=== PATIENT | female | born 2000 | race Caucasian/White ===

== ENCOUNTER → 2020-07-28 | Outpatient (CLI) | payer MEDICAID ==
--- NOTE | 2020-07-28 16:21 | Diagnostic Imaging Report ---
INDICATION: survey. TECHNIQUE: Multiple real-time grayscale images were obtained over the gravid uterus. COMPARISON: None FINDINGS: Single fetus in a breech presentation. Heart rate was recorded 149 bpm. Placenta is anterior. Amniotic fluid index is normal. Cervical length is 3.9 cm. survey demonstrates kidneys, bladder and stomach to be unremarkable. brain is unremarkable. The four-chamber heart view is somewhat suboptimal due to position. There is a three-vessel cord with normal insertion. spine is unremarkable. Biometrical measurements are as follows: Biparietal 4.39 cm, age 19 weeks 2 days. Head circumference 17.41 cm, age 20 weeks 0 days. Abdominal circumference 14.58 cm, age 20 weeks 0 days. Femur length 3.30 cm, age 20 weeks 3 days. Sonographic estimate age: 20 weeks 0 days. Sonographic estimated date of delivery: 12/15/2020. Estimated Weight: 329 gm (+/- 48 gm). LMP percentile: 40%. heart rate: 149 beats per minute. number: 1 of 1. IMPRESSION: Single live IUP 20 weeks 0 days gestational age. Estimated date of confinement sonographically is 12/15/2020. Dictated by: Dictated on workstation # [id number]
== END ==
LOC: RAD 09:35
PROVIDERS: ATTEND Nurse Practitioner Women's Health
DX: Z34.02 Encounter for supervision of normal first pregnancy, second trimester (principal); Z3A.20 20 weeks gestation of pregnancy
CPT/HCPCS: 76805

== ENCOUNTER 2020-11-13 11:17 | Outpatient (CLI) | payer MEDICAID ==
[~2020-11-13] VITALS: Ht 162.6 cm; Wt 65.0 kg
[2020-11-13 11:28] VITALS: BP 125/72
[2020-11-13] MEDS ORDERED: PREN-51 PO (11:28)
[2020-11-13 11:31] LABS: BILIRUBIN,URINE NEGATIVE (NEGATIVE); CLARITY,URINE CLEAR; COLOR,URINE YELLOW; GLUCOSE, URINE (UA) NEGATIVE (NEGATIVE); KETONES,URINE NEGATIVE (NEGATIVE); LEUKOCYTE ESTERASE ,URINE 2+ (NEGATIVE); NITRITE,URINE NEGATIVE (NEGATIVE); PROTEIN,URINE NEGATIVE (NEGATIVE)
[2020-11-13 11:40] LABS: BACTERIA,URINE TRACE /HPF
[2020-11-13 11:57] VITALS: BP 125/72
[2020-11-13] MEDS ORDERED: ACETAMINOPHEN 500 MG TAB (TYLENOL) ONE (12:29)
[2020-11-13] MEDS ORDERED: NS IV 1000 ML 1,000 ML ONE (12:29)
[2020-11-13] MEDS ORDERED: NS IV 1000 ML 1,000 ML IV SCH (12:30)
[2020-11-13] MEDS ORDERED: ACETAMINOPHEN 500 MG TAB (TYLENOL) PO ONE (12:30)
--- NOTE | 2020-11-14 08:32 | Physician Query-Final Dx ---
FERNANDO CHEEMA 11/14/20 0832: Clinic Account Progress/Dx Physician Query: Please give diagnosis Please include # weeks gestation Date of Service Nov 13, 2020 at 11:17 RENATO LONGO DO 11/16/20 0545: Clinic Account Progress/Dx DIAGNOSIS: Diagnosis 35 week IUP Diarrhea, acute gastroenteritis FERNANDO CHEEMA Nov 14, 2020 08:32 RENATO LONGO DO Nov 16, 2020 05:45
== END 2020-11-13 15:54 | disposition home or self-care (01) ==
LOC: WSo 11:17 → LDRP 11:18 → WSo 15:54
PROVIDERS: ATTEND Obstetrics & Gynecology
DX: O99.613 Diseases of the digestive system complicating pregnancy, third trimester (principal); O26.893 Other specified pregnancy related conditions, third trimester; Z3A.35 35 weeks gestation of pregnancy
CPT/HCPCS: 81000; 96360; G0463; 99214

== ENCOUNTER 2020-12-08 06:12 | Inpatient (IN) | payer MEDICAID ==
[2020-12-08] VITALS (62 sets, daily range): BP systolic 99–156; BP diastolic 56–94
[~2020-12-08 06:12] MED LIST: PREN-51 PO
[2020-12-08] MEDS ORDERED: AMPICILLIN FOR IV USE 2,000 MG in WATER (STERILE) FOR INJECTION 14.8 ML IV SCH (07:29)
[2020-12-08] MEDS ORDERED: AMPICILLIN 2,000 MG/14.8 ML (IV USE) ONE (07:33)
[2020-12-08] MEDS ORDERED: D5 LR IV SOLUTION 1,000 ML IV ONE (07:33)
[2020-12-08] MEDS ORDERED: WATER (STERILE) FOR INJECTION 20 ML ONE (07:33)
[2020-12-08] MEDS: D5 LR IV SOLUTION 1,000 ML IV SCH ×2 (07:41→16:32)
[2020-12-08 07:59] LABS: BILIRUBIN,URINE NEGATIVE (NEGATIVE); CLARITY,URINE CLEAR; COLOR,URINE YELLOW; GLUCOSE, URINE (UA) NEGATIVE (NEGATIVE); KETONES,URINE NEGATIVE (NEGATIVE); LEUKOCYTE ESTERASE ,URINE 3+ (NEGATIVE); NITRITE,URINE NEGATIVE (NEGATIVE); PH,URINE 6.5 (5-9); PROTEIN,URINE NEGATIVE (NEGATIVE)
[2020-12-08 08:04] LABS: BASOPHILS % (AUTO) 1 % (0-10); EOSINOPHILS # (AUTO) 0.1 10^3/uL (0.0-0.3); EOSINOPHILS % (AUTO) 1 % (0-10); HEMATOCRIT 37 % (35-52); HEMOGLOBIN 12.2 g/dL (11.5-16.0); LYMPHOCYTES % (AUTO) 27 % (12-44); MEAN CORPUSCULAR HEMOGLOBIN 28 pg (25-34); MEAN CORPUSCULAR HGB CONC 33 g/dL (32-36); MEAN CORPUSCULAR VOLUME 85 fL (80-99); MEAN PLATELET VOLUME 9.7 fL (9.0-12.2); MONOCYTES # (AUTO) 0.7 10^3/uL (0.0-1.0); MONOCYTES % (AUTO) 9 % (0-12); NEUTROPHILS # (AUTO) 4.6 10^3/uL (1.8-7.8); NEUTROPHILS % (AUTO) 61 % (42-75); PLATELET COUNT 325 10^3/uL (130-400); WHITE BLOOD COUNT 7.5 10^3/uL (4.3-11.0)
[2020-12-08 08:20] LABS: BACTERIA,URINE MODERATE /HPF; WBC,URINE 25-50 /HPF
--- NOTE | 2020-12-08 08:52 | History & Physical-OB ---
OB - Chief Complaint & HPI Date/Time Date of Admission: Date of Admission: Dec 08, 2020 at 07:10 Date seen by a Provider: Dec 08, 2020 Time Seen by a Provider: 09:00 Chief Complaint/History OB-Reason for Admission/Chief: Induction of Labor Hx : 1 Hx Para: 0 Expected Date of Delivery: Dec 14, 2020 Gestational Age in Weeks: 39 Gestational Age in Days: 1 Admission Nurse Assessment Rev: Yes History of Labs See PN record Allergies and Home Medications Allergies Coded Allergies: nickel (Unverified Allergy, Unknown, 11/13/20) Home Medications Vit #76/Iron,Carb/FA 1 Each Tablet, 1 EACH PO DAILY, (Reported) Patient Home Medication List Home Medication List Reviewed: Yes OB - History Hx of Present Care: Yes Ultrasounds: Normal mid trimester US Obstetrical Complications: None Medical Complications: None Patient Past Medical History n/a OB - Admission Exam Physical Exam HEENT: NCAT Heart: Rhythm Normal Lungs: Clear Abdomen: Gravid Extremities: Normal Reflexes: Normal Cervical Dilatation: 2cm Effacement: 75% Station: -1 Membranes: Intact Heart Rate: 130's Accelerations: Accelerations Present Decelerations: No Decelerations Short Term Variability: Present Debug Technician Variability: Average (6-25) Contractions on Admission: 6-10 Minutes Apart Intensity: Mild Barr Scoring Tool (Modified) Dilation (cm): 1-2cm (1) Effacement (%): 51-79% (2) Descent/Station: -1,0 (2) Cervix Consistency: Soft (2) Cervix Position: Anterior (2) Subtract 1 point for: Nulliparity (-1) Barr Score: 8 Labs Laboratory Tests Test 12/08/20 07:35 Range/Units White Blood Count 7.5 4.3-11.0 10^3/uL Red Blood Count 4.31 3.80-5.11 10^6/uL Hemoglobin 12.2 11.5-16.0 g/dL Hematocrit 37 35-52 % Mean Corpuscular Volume 85 80-99 fL Mean Corpuscular Hemoglobin 28 25-34 pg Mean Corpuscular Hemoglobin Concent 33 32-36 g/dL Red Cell Distribution Width 12.8 10.0-14.5 % Platelet Count 325 130-400 10^3/uL Mean Platelet Volume 9.7 9.0-12.2 fL Immature Granulocyte % (Auto) 1 % Neutrophils (%) (Auto) 61 42-75 % Lymphocytes (%) (Auto) 27 12-44 % Monocytes (%) (Auto) 9 0-12 % Eosinophils (%) (Auto) 1 0-10 % Basophils (%) (Auto) 1 0-10 % Neutrophils # (Auto) 4.6 1.8-7.8 10^3/uL Lymphocytes # (Auto) 2.0 1.0-4.0 10^3/uL Monocytes # (Auto) 0.7 0.0-1.0 10^3/uL Eosinophils # (Auto) 0.1 0.0-0.3 10^3/uL Basophils # (Auto) 0.0 0.0-0.1 10^3/uL Immature Granulocyte # (Auto) 0.0 0.0-0.1 10^3/uL Urine Color YELLOW Urine Clarity CLEAR Urine pH 6.5 5-9 Urine Specific [place] 1.010 L 1.016-1.022 Urine Protein NEGATIVE NEGATIVE Urine Glucose (UA) NEGATIVE NEGATIVE Urine Ketones NEGATIVE NEGATIVE Urine Nitrite NEGATIVE NEGATIVE Urine Bilirubin NEGATIVE NEGATIVE Urine Urobilinogen 0.2 < = 1.0 MG/DL Urine Leukocyte Esterase 3+ H NEGATIVE Urine RBC (Auto) NEGATIVE NEGATIVE Urine RBC NONE /HPF Urine WBC 25-50 H /HPF Urine Squamous Epithelial Cells 10-25 H /HPF Urine Crystals NONE /LPF Urine Bacteria MODERATE H /HPF Urine Casts NONE /LPF Urine Mucus SMALL H /LPF Urine Culture Indicated YES OB - Assessment/Plan/Diagnosis Assessment Assessment: group B positive strep, induction of labor Admission Dx 20 yo @ 39 weeks Elective IOL GBS pos Admission Status: Inpatient Order (span 2 midnights) Reason for Inpatient Admission: IOL at 39 weeks Plan Plan: Induction Induction Method: per Pitocin Protocol RENATO LONGO DO Dec 08, 2020 08:52
[2020-12-08] MEDS ORDERED: OXYTOCIN PRE-MIX DRIP 500 ML IV SCH (09:30)
[2020-12-08] MEDS ORDERED: fentaNYL 2 mcg/ml BUPIVA 0.125 100 ML ONE (10:55)
[2020-12-08] MEDS ORDERED: LACTATED RINGERS 1,000 ML IV ONE ×2 (10:55→14:15)
[2020-12-08] MEDS ORDERED: BUPIVACAINE 0.25% 30 ML (SENSORCAINE) VIAL ONE (11:24)
[2020-12-08] MEDS ORDERED: fentaNYL INJ 100 MCG/2 ML AMP ONE (11:24)
[2020-12-08] MEDS: AMPICILLIN FOR IV USE 1,000 MG in WATER (STERILE) FOR INJECTION 7.4 ML IV SCH ×2 (11:48→15:28)
[2020-12-08] MEDS ORDERED: ONDANSETRON 4 MG/2 ML (SDV) Z0FRAN ONE (12:13)
[2020-12-08] MEDS: ONDANSETRON 4 MG/2 ML (SDV) Z0FRAN IVP PRN ×2 (12:19→15:25)
[2020-12-08] MEDS ORDERED: CATHETER FLUSH 10 ML SYR IV PRN (14:15)
[2020-12-08] MEDS ORDERED: ONDANSETRON 4 MG/2 ML (SDV) Z0FRAN IV PRN (14:15)
[2020-12-08] MEDS ORDERED: diphenhydrAMINE 50 MG/ML INJ (BENADRYL) IV PRN (14:15)
[2020-12-08] MEDS ORDERED: NALOXONE 0.4 MG/ML 1 ML (NARCAN) VIAL IV PRN ×2 (14:15→20:00)
[2020-12-08] MEDS ORDERED: fentaNYL 2 mcg/ml BUPIVA 0.125 100 ML IV SCH (14:15)
[2020-12-08] MEDS: CATHETER FLUSH 10 ML SYR IV SCH (15:20)
[2020-12-08] MEDS ORDERED: LIDOCAINE 1% INJ 20 ML 20 ML VIAL ONE (18:48)
--- NOTE | 2020-12-08 19:56 | OB Labor & Delivery Record ---
L&D History Date of Service Date of Service: Dec 08, 2020 History Expected Date of Delivery: Dec 14, 2020 Gestational Age in Weeks: 39 Hx : 1 Hx Para: 0 Complications Events: Routine care Operative Indications (Cesarea: N/A-Vaginal Delivery Intrapartal Events: None L&D Stage1 Stage One Onset of Labor - Date: Dec 08, 2020 Monitors and Tracing Monitor Mode: External Heart Rate: 130 Monitor Accelerations: Uniform Monitor Decelerations: Variable Station: 0 Residential Variability: Average (6-10) Short Term Variability: Present Presentation: Vertex Vital Signs VS - Last 72 Hours, by Label 12/08/20 12/08/20 12/08/20 12/08/20 07:20 09:05 09:34 09:45 Temp 36.9 36.9 Pulse 89 89 69 65 Resp 18 18 18 18 B/P (MAP) 130/86 (101) 118/75 (89) 105/57 (73) Pulse Ox 100 100 O2 Delivery Room Air Room Air Room Air Room Air 12/08/20 12/08/20 12/08/20 12/08/20 10:00 10:14 10:30 10:46 Temp 36.3 Pulse 63 58 65 69 Resp 18 18 18 18 B/P (MAP) 108/62 (77) 104/60 (75) 110/73 (85) 119/79 (92) O2 Delivery Room Air Room Air Room Air Room Air 12/08/20 12/08/20 12/08/20 12/08/20 11:00 11:10 11:29 11:32 Pulse 69 70 71 79 Resp 18 18 18 18 B/P (MAP) 129/85 (100) 133/82 (99) 128/76 (93) 128/80 (96) Pulse Ox 100 100 O2 Delivery Room Air Room Air Room Air Room Air 12/08/20 12/08/20 12/08/20 12/08/20 11:35 11:38 11:41 11:44 Pulse 73 69 83 73 Resp 18 18 18 18 B/P (MAP) 128/83 (98) 126/80 (95) 131/86 (101) 117/72 (87) Pulse Ox 100 100 100 100 O2 Delivery Room Air Room Air Room Air Room Air 12/08/20 12/08/20 12/08/20 8/16/21 11:47 11:50 12:00 12:05 Pulse 82 88 73 70 Resp 18 18 18 18 B/P (MAP) 110/75 (87) 112/70 (84) 120/76 (91) 117/61 (79) Pulse Ox 100 100 99 98 O2 Delivery Room Air Room Air Room Air Room Air 12/08/20 12/08/20 12/08/20 12/08/20 12:10 12:18 12:23 12:28 Pulse 70 75 89 74 Resp 18 18 18 18 B/P (MAP) 118/66 (83) 119/63 (81) 115/74 (88) 102/67 (79) Pulse Ox 99 99 100 100 O2 Delivery Room Air Room Air Room Air Room Air 12/08/20 12/08/20 12/08/20 12/08/20 12:33 12:38 12:44 12:48 Pulse 86 73 75 85 Resp 18 18 18 18 B/P (MAP) 111/56 (74) 113/60 (77) 107/67 (80) 109/67 (81) Pulse Ox 100 100 100 95 O2 Delivery Room Air Room Air Room Air Room Air 12/08/20 12/08/20 12/08/20 12/08/20 12:53 13:00 13:10 13:25 Temp 35.9 Pulse 70 68 67 58 Resp 18 18 18 18 B/P (MAP) 113/64 (80) 106/63 (77) 111/62 (78) 107/60 (76) Pulse Ox 100 100 97 100 O2 Delivery Room Air Room Air Room Air Room Air 12/08/20 12/08/20 12/08/20 12/08/20 13:40 13:55 14:10 14:25 Pulse 67 65 85 64 Resp 18 18 18 18 B/P (MAP) 107/63 (78) 110/63 (79) 123/82 (96) 105/60 (75) Pulse Ox 100 100 100 100 O2 Delivery Room Air Room Air Room Air Room Air 12/08/20 12/08/20 12/08/20 12/08/20 14:40 14:55 15:18 15:25 Temp 36.4 Pulse 72 108 69 68 Resp 18 18 18 18 B/P (MAP) 119/74 (89) 121/84 (96) 121/56 (77) 119/72 (88) Pulse Ox 100 100 100 99 O2 Delivery Room Air Room Air Room Air Room Air 12/08/20 12/08/20 12/08/20 12/08/20 15:55 16:40 16:55 17:10 Temp 35.6 Pulse 65 67 66 67 Resp 18 18 18 18 B/P (MAP) 99/74 (82) 113/62 (79) 124/62 (82) 113/64 (80) Pulse Ox 98 100 100 98 O2 Delivery Room Air Room Air Room Air Room Air 12/08/20 12/08/20 12/08/20 12/08/20 17:25 17:40 17:55 18:10 Temp 35.7 Pulse 74 66 62 63 Resp 18 18 18 18 B/P (MAP) 114/56 (75) 122/70 (87) 116/65 (82) 152/59 (90) Pulse Ox 100 100 100 100 O2 Delivery Room Air Room Air Room Air Room Air 12/08/20 12/08/20 12/08/20 12/08/20 18:25 18:38 18:43 18:55 Temp 36.4 Pulse 60 68 100 Resp 18 18 18 B/P (MAP) 104/59 (74) 111/61 (78) 134/70 (91) Pulse Ox 98 99 O2 Delivery Room Air Room Air Room Air Rupture of Membranes Spontaneous Ruture of Membrane: No Amniotic Membrane Rupture Time: 1050 Amniotic Membrane Fluid Desc.: Clear Vaginal Bleeding Description: Normal Show Induction/Anesthesia Epidural Cath Placement - Time: 1135 Progress/Notes Patient admitted for elective IOL, Pitocin started and antibiotics for GBS prophylaxis, she received AROM, and progressed to complete and +2 station with epidural analgesia L&D Stage2 Stage Two Stage II Date: Dec 08, 2020 Monitors and Tracing Monitor Mode: External Heart Rate: 150 Monitor Accelerations: Uniform Monitor Decelerations: Variable Business Services Analyst Variability: Average (6-10) Short Term Variability: Present Position: Right Occiput Anterior Presentation: Vertex Cord Descript/Complications Cord Vessel Description: 3 Vessels Delivery Type Infant Delivery Method: Spontaneous Vaginal Anterior Shoulder: Left Episiotomy/Perineal Laceration Laceraction(s)/Extensions: Yes Episiotomy Description: Right Mediolateral Degree (describe repair) RML repaired using 3-0 and 2-0 vicryl suture in usual fashion. Condition of Infant Delivery 1 minute Comment: 6 5 minute Comment: 9 Notes Live female infant weight 6lbs 9 oz Condition of Condition of : Living Exam: No Observed Abnormalities Resuscitation Resuscitation: N/A - Spontaneous Resp L&D Stage3 Stage Three Stage III Date: Dec 08, 2020 Pictocin Pitocin Administration mu/min: 6 Pitocin ml/hr: 6 Pitocin Administration Comment: 30 mu wide open at delivery of placenta Placenta Delivery Placenta Delivery: Spontaneous Delivery Summary Summary Estimated blood loss (mL): 300 Attending at delivery: Renato Longo DO Condition of Delivery Examined: Cervix Examined, Uterus Explored Post Hemorrhage: No Condition of Mother stable Condition of Infant (s) stable RENATO LONGO DO Dec 08, 2020 19:56
--- NOTE | 2020-12-08 19:58 | Discharge Inst-Women's Service ---
Discharge Inst-Women's Serv Depart Medication/Instructions New, Converted or Re-Newed RX: RX on Chart Final Diagnosis PPD 2 NVD Problems Reviewed?: Yes Consults/Follow Up Additional Follow Up: Yes Orders/Referrals Dr. Longo in 6 weeks Activity Activity: Activity as Tolerated Driving Instructions: No Driving for 1 Week NO SMOKING: NO SMOKING Nothing Inside Vagina: No Douching, No Britt, No Tampons Diet Discharge Diet: No Restrictions Symptoms to Report to : Bleeding Excessive, Pain Increased, Fever Over 101 Degrees F, Vaginal Bleeding Increase, Questions/Concerns For Any Problems or Questions: Contact Your Physician RENATO LONGO DO Dec 08, 2020 19:58
[2020-12-08] MEDS ORDERED: DCS100C PO (19:59)
[2020-12-08] MEDS ORDERED: BENZ78AE5 TP (19:59)
[2020-12-08] MEDS ORDERED: IBUP-844 PO (19:59)
[2020-12-08] MEDS ORDERED: ACHD5005 PO (19:59)
[2020-12-08] MEDS ORDERED: TETANUS,DIPTH,PERTUSS P/F (BOOSTRIX) 0.5 ML VIAL IM ONE (20:00)
[2020-12-08] MEDS ORDERED: MEASLES,MUMPS,RUBELLA 1 EA INJ SQ ONE (20:00)
[2020-12-08] MEDS ORDERED: BENZOCAINE/MENTHOL (DERMOPLAST) 56 ML CAN TP PRN (20:00)
[2020-12-08] MEDS: OXYTOCIN PRE-MIX DRIP 500 ML IV SCH (20:16)
[2020-12-08] MEDS: IBUPROFEN 600 MG (MOTRIN) TAB PO SCH (21:20)
[2020-12-08] MEDS: DOCUSATE SODIUM 100 MG (COLACE) CAP PO SCH (21:20)
[2020-12-08] MEDS: WITCH HAZEL(TUCKS) 40 EA JAR TOP PRN (21:21)
[2020-12-08] MEDS ORDERED: CATHETER FLUSH 10 ML SYR IV SCH (22:00)
[2020-12-09 00:09] VITALS: BP 110/59
[2020-12-09] MEDS: OXYTOCIN PRE-MIX DRIP 500 ML IV SCH (03:40)
[2020-12-09] MEDS: CATHETER FLUSH 10 ML SYR IV SCH (03:40)
[2020-12-09 03:47] VITALS: BP 119/67
[2020-12-09] MEDS: IBUPROFEN 600 MG (MOTRIN) TAB PO SCH ×4 (03:47→20:08)
[2020-12-09 06:35] LABS: BASOPHILS % (AUTO) 0 % (0-10); EOSINOPHILS # (AUTO) 0.1 10^3/uL (0.0-0.3); EOSINOPHILS % (AUTO) 1 % (0-10); HEMATOCRIT 29 % (35-52); HEMOGLOBIN 9.4 g/dL (11.5-16.0); LYMPHOCYTES # (AUTO) 1.9 10^3/uL (1.0-4.0); LYMPHOCYTES % (AUTO) 21 % (12-44); MEAN CORPUSCULAR HEMOGLOBIN 29 pg (25-34); MEAN CORPUSCULAR HGB CONC 33 g/dL (32-36); MEAN CORPUSCULAR VOLUME 87 fL (80-99); MEAN PLATELET VOLUME 9.9 fL (9.0-12.2); MONOCYTES # (AUTO) 0.9 10^3/uL (0.0-1.0); MONOCYTES % (AUTO) 11 % (0-12); NEUTROPHILS # (AUTO) 5.9 10^3/uL (1.8-7.8); NEUTROPHILS % (AUTO) 67 % (42-75); PLATELET COUNT 241 10^3/uL (130-400); WHITE BLOOD COUNT 8.8 10^3/uL (4.3-11.0)
[2020-12-09] MEDS ORDERED: PRENATAL VITAMIN 1 EA TAB PO SCH (07:00)
[2020-12-09 08:30] VITALS: BP 124/69
[2020-12-09] MEDS: DIBUCAINE 1% OINTMENT 30 GM TUBE TOP PRN ×2 (08:35→20:13)
[2020-12-09] MEDS: DOCUSATE SODIUM 100 MG (COLACE) CAP PO SCH ×2 (08:36→20:08)
[2020-12-09] MEDS: HYDROcodone/APAP 5 MG/325 MG (LORTAB) TAB PO PRN ×3 (08:36→21:41)
[2020-12-09] MEDS ORDERED: FERROUS SULF 325 MG (IRON) TAB PO SCH (09:00)
--- NOTE | 2020-12-09 10:02 | Postpartum Progress Note ---
Note Note Day # 1 Subjective: Patient is without complaints. Ambulating, voiding. Tolerating a regular diet without nausea or vomiting. Normal lochia. Pain is well controlled with oral pain medications. Breast feeding. Objective: Physical Exam: General - Alert and oriented, no apparent distress Abdomen - Soft, appropriately tender to palpation, non-distended, fundus firm at umbilicus Extremities - no edema, negative Rk's bilaterally Assessment: Post- day # 1, status post vaginal delivery. Recovering well, hemodynamically stable Acute blood loss anemia Plan: Routine care. Encourage breast feeding. Encourage ambulation. Ferrous sulfate supplementation. Plan for discharge today Vitals - Labs Vital Signs - I&O Vital Signs Date Time Temp Pulse Resp B/P (MAP) Pulse Ox O2 Delivery O2 Flow Rate FiO2 12/09/20 03:47 36.8 75 18 119/67 (84) 97 Room Air 12/09/20 00:09 37.0 75 18 110/59 (76) 97 Room Air 12/08/20 21:53 88 125/66 (85) 12/08/20 21:39 79 124/72 (89) 12/08/20 21:23 83 129/73 (91) 12/08/20 21:08 77 126/79 (95) 12/08/20 20:53 82 121/77 (92) 12/08/20 20:45 83 120/75 (90) 12/08/20 20:30 90 124/68 (86) 12/08/20 20:15 106 156/69 (98) 12/08/20 19:40 37.0 127 18 129/74 (92) Room Air 12/08/20 19:30 118 18 136/80 (98) Room Air 12/08/20 19:15 93 18 127/94 (105) Room Air 12/08/20 18:55 100 18 134/70 (91) Room Air 12/08/20 18:43 36.4 12/08/20 18:38 68 18 111/61 (78) 99 Room Air 12/08/20 18:25 60 18 104/59 (74) 98 Room Air 12/08/20 18:10 63 18 152/59 (90) 100 Room Air 12/08/20 17:55 35.7 62 18 116/65 (82) 100 Room Air 12/08/20 17:40 66 18 122/70 (87) 100 Room Air 12/08/20 17:25 74 18 114/56 (75) 100 Room Air 12/08/20 17:10 67 18 113/64 (80) 98 Room Air 12/08/20 16:55 66 18 124/62 (82) 100 Room Air 12/08/20 16:40 35.6 67 18 113/62 (79) 100 Room Air 12/08/20 15:55 65 18 99/74 (82) 98 Room Air 12/08/20 15:25 36.4 68 18 119/72 (88) 99 Room Air 12/08/20 15:18 69 18 121/56 (77) 100 Room Air 12/08/20 14:55 108 18 121/84 (96) 100 Room Air 12/08/20 14:40 72 18 119/74 (89) 100 Room Air 12/08/20 14:25 64 18 105/60 (75) 100 Room Air 12/08/20 14:10 85 18 123/82 (96) 100 Room Air 12/08/20 13:55 65 18 110/63 (79) 100 Room Air 12/08/20 13:40 67 18 107/63 (78) 100 Room Air 12/08/20 13:25 58 18 107/60 (76) 100 Room Air 12/08/20 13:10 35.9 67 18 111/62 (78) 97 Room Air 12/08/20 13:00 68 18 106/63 (77) 100 Room Air 12/08/20 12:53 70 18 113/64 (80) 100 Room Air 12/08/20 12:48 85 18 109/67 (81) 95 Room Air 12/08/20 12:44 75 18 107/67 (80) 100 Room Air 12/08/20 12:38 73 18 113/60 (77) 100 Room Air 12/08/20 12:33 86 18 111/56 (74) 100 Room Air 12/08/20 12:28 74 18 102/67 (79) 100 Room Air 12/08/20 12:23 89 18 115/74 (88) 100 Room Air 12/08/20 12:18 75 18 119/63 (81) 99 Room Air 12/08/20 12:10 70 18 118/66 (83) 99 Room Air 12/08/20 12:05 70 18 117/61 (79) 98 Room Air 12/08/20 12:00 73 18 120/76 (91) 99 Room Air 12/08/20 11:50 88 18 112/70 (84) 100 Room Air 12/08/20 11:47 82 18 110/75 (87) 100 Room Air 12/08/20 11:44 73 18 117/72 (87) 100 Room Air 12/08/20 11:41 83 18 131/86 (101) 100 Room Air 12/08/20 11:38 69 18 126/80 (95) 100 Room Air 12/08/20 11:35 73 18 128/83 (98) 100 Room Air 12/08/20 11:32 79 18 128/80 (96) 100 Room Air 12/08/20 11:29 71 18 128/76 (93) 100 Room Air 12/08/20 11:10 70 18 133/82 (99) Room Air 12/08/20 11:00 69 18 129/85 (100) Room Air 12/08/20 10:46 69 18 119/79 (92) Room Air 12/08/20 10:30 36.3 65 18 110/73 (85) Room Air 12/08/20 10:14 58 18 104/60 (75) Room Air I & O 12/09/20 07:00 Intake Total 3029.6 ml Balance 3029.6 ml Labs Laboratory Tests 12/09/20 06:05: White Blood Count 8.8, Red Blood Count 3.29L, Hemoglobin 9.4#L, Hematocrit 29L, Mean Corpuscular Volume 87, Mean Corpuscular Hemoglobin 29, Mean Corpuscular Hemoglobin Concent 33, Red Cell Distribution Width 12.7, Platelet Count 241, Mean Platelet Volume 9.9, Immature Granulocyte % (Auto) 0, Neutrophils (%) (Auto) 67, Lymphocytes (%) (Auto) 21, Monocytes (%) (Auto) 11, Eosinophils (%) (Auto) 1, Basophils (%) (Auto) 0, Neutrophils # (Auto) 5.9, Lymphocytes # (Auto) 1.9, Monocytes # (Auto) 0.9, Eosinophils # (Auto) 0.1, Basophils # (Auto) 0.0, Immature Granulocyte # (Auto) 0.0 RUPERTO MCKNIGHT APRN Dec 09, 2020 10:02
[2020-12-09 13:30] VITALS: BP 120/67
--- NOTE | 2020-12-09 15:53 | Anesthesia-Regional Post-Op ---
Regional Patient Condition Mental Status: Alert, Oriented x3 Circulation: Same as Pre-Op Headache: Absent Sensation: Full Recovery Motor Block: Absent Post Op Complications Complications None Follow Up Care/Instructions Patient Instructions None needed. Anesthesia/Patient Condition Patient is doing well, no complaints, stable vital signs, no apparent adverse anesthesia problems. No complications reported per nursing. EDWARD PAGAN CRNA Dec 09, 2020 15:53
[2020-12-09 17:00] VITALS: BP 131/70
[2020-12-09 20:08] VITALS: BP 133/77
[2020-12-09] MEDS: WITCH HAZEL(TUCKS) 40 EA JAR TOP PRN (20:13)
== END 2020-12-09 22:00 | disposition home or self-care (01) | DRG 806 ==
LOC: LDRP 07:10
PROVIDERS: ADMIT Obstetrics & Gynecology; ATTEND Obstetrics & Gynecology
PROC: 10E0XZZ Delivery of Products of Conception, External Approach (ICD-10-PCS; principal; 2020-12-08)
PROC: 0W8NXZZ Division of Female Perineum, External Approach (ICD-10-PCS; 2020-12-08)
PROC: 3E033VJ Introduction of Other Hormone into Peripheral Vein, Percutaneous Approach (ICD-10-PCS; 2020-12-08)
DX: O99.824 Streptococcus B carrier state complicating childbirth (principal); D62 Acute posthemorrhagic anemia; Z37.0 Single live birth; Z3A.39 39 weeks gestation of pregnancy; O90.81 Anemia of the puerperium
CPT/HCPCS: 36415; 81000; 85025; 86850; 86900; 86901; 87088